=== PATIENT | female | born 1990 | race Caucasian/White ===

== ENCOUNTER → 2024-02-24 | Outpatient (CLI) | payer BC ==
[2024-02-24 20:35] LABS: T4, Free (Free Thyroxine) 1.13 ng/dL (0.80-1.80)
== END | disposition home or self-care (01) ==
LOC: LABWHC1 12:22
PROVIDERS: ATTEND Physician Assistant Medical
DX: E03.9 Hypothyroidism, unspecified (principal); R23.2 Flushing
CPT/HCPCS: 36415; 84439; 84443; 84481

== ENCOUNTER → 2024-07-20 | Outpatient (CLI) | payer BC ==
--- NOTE | 2024-07-20 18:14 | US ---
EXAMINATION TYPE: US pelvic complete DATE OF EXAM: 07/20/2024 COMPARISON: NONE CLINICAL INDICATION: Female, 33 years old with history of E28.2 PCOS R10.2 PELVIC AND PERINEAL PAIN; Left pelvic pain TECHNIQUE: Transabdominal (TA). FINDINGS: Date of LMP: 06/06/2024 EXAM MEASUREMENTS: Uterus: 7.7 x 3.7 x 4.5 cm Endometrial Stripe: 1.3 cm Right Ovary: 2.2 x 1.6 x 1.7 cm for volume of 3.1 mL Left Ovary: 3.3 x 2.0 x 2.7 cm for volume of 9.3 mL 1. Uterus: anteverted 2. Endometrium: appears wnl 3. Right Ovary: wnl 4. Left Ovary: wnl Only a few small follicles are present on either side. 5. Bilateral Adnexa: wnl 6. Posterior cul-de-sac: wnl IMPRESSION: 1. Endometrial stripe thickness of 1.3 cm should correspond to the secretory phase of the menstrual c ycle. 2. Ovarian measurements as above. Not particularly enlarged. Only a few small follicles are present o n either side. [facility], Workstation: [email or web address], 07/20/2024 6:12 PM
== END | disposition home or self-care (01) ==
LOC: RADUSWWP 13:47
PROVIDERS: ATTEND Obstetrics & Gynecology
DX: E28.2 Polycystic ovarian syndrome (principal); R93.89 Abnormal findings on diagnostic imaging of other specified body structures
CPT/HCPCS: 76856